=== PATIENT | male | born 1995 | race Caucasian/White ===

== ENCOUNTER 2019-06-28 00:19 | Emergency (ER) | payer MEDICAID, OTHER ==
[~2019-06-28] VITALS: Ht 175.3 cm; Wt 110.0 kg
[2019-06-28] MEDS ORDERED: SOD CHLORIDE 0.9% 1,000 ML IV STA (00:20)
[2019-06-28 00:22] VITALS: Ht 175.3 cm; Wt 110.0 kg
[2019-06-28] MEDS ORDERED: morphine 4 MG/ML VIAL IV ONE (00:30)
[2019-06-28] MEDS ORDERED: CEFAZOLIN 2 GM/50 ML (PMX) 50 ML IVPB ONE (00:30)
[2019-06-28] MEDS ORDERED: ONDANSETRON 4 MG INJ IV ONE (00:30)
[2019-06-28] MEDS ORDERED: DIPHTH/TET/ACEL PERTUSS (ADULT) 0.5 ML VIAL IM* ONE (00:30)
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
[2019-06-28 06:30] VITALS: BP 140/81; PULSE 89; RESP 19
== END 2019-06-28 06:36 | disposition short-term general hospital (02) ==
LOC: E/R 00:19
DX: S31.102A Unspecified open wound of abdominal wall, epigastric region without penetration into peritoneal cavity, initial encounter (principal); S21.102A Unspecified open wound of left front wall of thorax without penetration into thoracic cavity, initial encounter; R10.13 Epigastric pain; W34.00XA Accidental discharge from unspecified firearms or gun, initial encounter; Y92.9 Unspecified place or not applicable; Z23 Encounter for immunization
CPT/HCPCS: 71045; 80048; 80307; 85025; 85610; 85730; 86850; 86900; 86901; 90715; J0690; J2270; J2405; J7030; 36415; 90471; 96374; 96375